=== PATIENT | female | born 1975 | race Native Hawaiian/Other Pacific Islander ===

== ENCOUNTER 2017-05-22 14:38 | Emergency (ER) | payer BC, OTHER ==
--- NOTE | 2017-05-22 15:35 | ED PDOC ---
HPI: Fever Fever Onset Was: 05/22/17 The Fever Was Measured: Axillary What Antipyretic Given Prior To Arrival: Acetaminophen Recent Sick Contacts: No Have you had recent travel within the past 21 days to any of the following countries: [place], [place], [place] or [place]?: No Does Patient Have Hx Of Febrile Seizures: No Did The Patient Have A Seizure Today: No Symptoms Associated With Fever: None Past Medical History Vital Signs: Last Vital Signs Temp 99 F 05/22/17 17:27 Pulse 103 H 05/22/17 14:44 Resp 12 05/22/17 14:44 BP 103/68 05/22/17 14:44 Pulse Ox 100 05/22/17 16:10 - Medical History Other PMH: Breast Ca with liver metastasis - Surgical History Other surgeries: B/L mastectomy with b/l breast implants. - Family History Family History: States: Other Other Family History: Mother breast Ca. Aunt Breast CA - Home Medications Home Medications: Ambulatory Orders Medication Instructions Recorded Ciprofloxacin 500 mg PO BID #6 tab 05/22/17 - Allergies Allergies/Adverse Reactions: Allergies Allergy/AdvReac Type Severity Reaction Status Date / Time No Known Allergies Allergy Verified 05/22/17 14:44 Review of Systems Constitutional: Positive for: Fever Physical Exam - Physical Exam Appears: Positive for: Well, No Acute Distress Head Exam: Positive for: ATRAUMATIC, NORMOCEPHALIC Skin: Positive for: Warm. Negative for: Rash Eye Exam: Positive for: Normal appearance ENT: Positive for: Normal ENT Inspection Neck: Positive for: Normal, Supple. Negative for: Limited ROM Cardiovascular/Chest: Positive for: Regular Rate, Rhythm. Negative for: Murmur Respiratory: Positive for: Normal Breath Sounds. Negative for: Crackles, Rales , Rhonchi, Wheezing Gastrointestinal/Abdominal: Positive for: Soft. Negative for: Tenderness, Distended, Guarding, Rebound Back: Positive for: Normal Inspection Extremity: Positive for: Normal ROM. Negative for: Tenderness, Pedal Edema, Calf Tenderness Neurologic/Psych: Positive for: Alert, Oriented - Laboratory Results Result Diagrams: 05/22/17 15:45 05/22/17 15:45 - ECG O2 Sat by Pulse Oximetry: 100 Medical Decision Making Medical Decision Making: Initial impression Fever unknown source to r/o infection/sepsis Differential Influenza, chest wall abscess s/p biopsy, UTI, PNA Plan CBC, CMP, blood Cx, UA, Urine Cx, Influenza test CXR, EKG Motrin 600 mg PO Talk[address] with Dr Lucero who reports sent patient to ED to r/o infection/sepsis. He also reports fever may be related with new inmunotherapy medication 17:30 reevaluation. Patient asymptomatic now, afebrile Temp 99. Labs CBC: no leukocytosis, CMP: Transaminitis, Influenza test neg. CXR: no infiltrates, EKG normal. UA: Hematuria related with menses. leukocyte sterase trace, leukocyturia LAbs result discussed with Hem-Onc Dr Lucero Recomendation Ciprofloxacin 500 mg BID x 3 days Tylenol 500 mg Q 6h PRN fever or Motrin 600 mg PRN fever. 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 Patient reports fever 104 started today at 1pm. She denies cough, SOB, runny nose, nasal congestion, chest pain, palpitation, nausea , vomiting, diarrhea, abd pain, dysuria, skin infection. Patient reports she had central chest biopsy 2 days ago. Patient took Tylenol before coming to the hospital. After Talking with Dr Lucero he states that sent patient to ED to r/ o infection and states that fever can also be related with the new medications started yesterday PH: [phone]
--- NOTE | 2017-05-22 15:59 | RAD ---
HISTORY: Breast Ca. Fever COMPARISON: No prior. TECHNIQUE: Chest PA and lateral FINDINGS: LUNGS: No active pulmonary disease. PLEURA: No significant pleural effusion identified. No pneumothorax apparent. CARDIOVASCULAR: Normal. OSSEOUS STRUCTURES: No significant abnormalities. VISUALIZED UPPER ABDOMEN: Normal. OTHER FINDINGS: Bilateral axillary surgical clips. IMPRESSION: No active disease.
[2017-05-22 16:17] LABS: BASO % 0.5 % (0.0-2.0); EOS % 0.2 % (0.0-4.0); HEMOGLOBIN 11.9 g/dL (12.0-16.0); LYMPH # 0.3 K/uL (1.0-4.3); LYMPH % 3.4 % (20.0-40.0); MEAN CELL VOLUME 102.2 fl (81.0-99.0); MEAN CORPUSCULAR HEMOGLOBIN 34.6 pg (27.0-31.0); MEAN CORPUSCULAR HGB CONC 33.9 g/dL (33.0-37.0); MEAN PLATELET VOLUME 7.8 fl (7.2-11.7); MONO # 0.5 K/uL (0.0-0.8); NEUT # 6.9 K/uL (1.8-7.0); NEUT % 89.9 % (50.0-75.0); PLATELET COUNT 275 K/uL (130-400); RBC 3.44 Mil/uL (3.80-5.20); RED CELL DISTRIBUTION WIDTH 14.8 % (11.5-14.5); WHITE BLOOD COUNT 7.6 K/uL (4.8-10.8)
[2017-05-22 16:24] LABS: ALB/GLOB RATIO 1.1 (1.0-2.1); ALBUMIN 4.1 g/dL (3.5-5.0); ALT/SGPT 59 U/L (9-52); AST/SGOT 51 U/L (14-36); BLOOD UREA NITROGEN 11 mg/dl (7-17); CALCIUM 9.6 mg/dL (8.4-10.2); GFR AFRICAN-AMERICAN > 60; GFR NON-AFRICAN AMERICAN > 60
[2017-05-22 16:30] LABS: SQUAMOUS EPITHIAL 1 /hpf (0-5); URINE BILIRUBIN NEGATIVE (NEGATIVE); URINE BLOOD LARGE (NEGATIVE); URINE CLARITY CLOUDY (Clear); URINE COLOR YELLOW (YELLOW); URINE GLUCOSE (UA) NEG (Normal); URINE LEUKOCYTE ESTERASE TRACE Leu/uL (Negative); URINE NITRATE NEGATIVE (NEGATIVE); URINE PROTEIN 30 mg/dL (NEGATIVE); URINE UROBILINOGEN 0.2-1.0 mg/dL (0.2-1.0)
[2017-05-22 16:38] LABS: PARTIAL THROMBOPLASTIN TIME 22.6 Seconds (25.6-37.1); PROTHROMBIN TIME 11.5 Seconds (9.8-13.1)
[2017-05-22 17:34] VITALS: PULSE 82; RESP 19
[2017-05-22 18:08] VITALS: BP 125/78; TEMP 97; O2SAT 98
[2017-05-22 18:34] LABS: TOTAL CELLS COUNTED 100
[2017-05-22 18:40] LABS: LYMPHOCYTE 3 % (20-50); MONOCYTE 7 % (0-10); NEUTROPHIL 90 % (42-75)
[2017-05-22 18:41] LABS: PLATELET ESTIMATE NORMAL (NORMAL)
--- NOTE | 2017-05-23 23:46 | CARD ---
APPROVED REPORT EKG Measurement Heart [id number] <Conclusion> Sinus rhythm with short OK Otherwise normal ECG
== END 2017-05-22 18:50 | disposition home or self-care (01) ==
LOC: H.ER 14:38
DX: R50.9 Fever, unspecified (principal); N30.91 Cystitis, unspecified with hematuria; C50.919 Malignant neoplasm of unspecified site of unspecified female breast

== ENCOUNTER 2018-06-30 14:53 | Inpatient (IN) | payer BC ==
[2018-06-30] MEDS ORDERED: Sodium Chloride 0.9% 1,000 ML IV STA (17:03)
[2018-06-30 17:15] LABS: VENOUS BLOOD GAS BASE EXCESS 3.9 mmol/L (0.0-2.0); VENOUS BLOOD GAS PCO2 42 mmHg (40-60); VENOUS BLOOD GAS PO2 32 mm/Hg (30-55); VENOUS BLOOD PH 7.44 (7.32-7.43)
[2018-06-30 17:20] LABS: BASO % 1.3 % (0.0-2.0); EOS % 0.1 % (0.0-4.0); LYMPH # 0.8 K/uL (1.0-4.3); LYMPH % 41.5 % (20.0-40.0); MEAN CELL VOLUME 100.9 fl (81.0-99.0); MEAN CORPUSCULAR HEMOGLOBIN 33.7 pg (27.0-31.0); MEAN CORPUSCULAR HGB CONC 33.4 g/dL (33.0-37.0); MEAN PLATELET VOLUME 8.8 fl (7.2-11.7); MONO # 0.3 K/uL (0.0-0.8); MONO % 14.6 % (0.0-10.0); NEUT # 0.8 K/uL (1.8-7.0); NEUT % 42.5 % (50.0-75.0); NRBC % 10.1 % (0.0-0.0); RBC 2.01 Mil/uL (3.80-5.20); RED CELL DISTRIBUTION WIDTH 20.7 % (11.5-14.5)
--- NOTE | 2018-06-30 17:20 | ED PDOC ---
HPI: General Adult Time Seen by Provider: 06/30/18 15:34 Chief Complaint (Nursing): Abdominal Pain Chief Complaint (Provider): Right flank/rib pain History Per: Patient History/Exam Limitations: no limitations Additional History Per: Patient, Family Additional Complaint(s): 43yo female with history of metastatic breast cancer with mets to liver, currently undergoing chemothreapy, comes to ER with complaints of right sided flank and right lower rib pain since this morning. She states the pain has been ongoing for several hours, but currently is less painful than at onset. Patient and concerned due to patient's medical history; also reports patient recently had a procedure done by IR access through right groin and used dye to perform mapping of liver. Patient also had a fever this morning. Otherwise, no cough, vomiting, diarrhea or urinary symptoms. Patient also reports intermittent abdominal pain x 2 weeks, which she attributes to her chemotherapy. No additional complaints. PMD: [facility] Oncologist: Skyler Fairbanks Past Medical History Reviewed: Historical Data, Nursing Documentation, Vital Signs Vital Signs: Last Vital Signs Temp 99.7 F H 06/30/18 15:22 Pulse 104 H 06/30/18 15:22 Resp 18 06/30/18 15:22 BP 99/61 L 06/30/18 15:22 Pulse Ox 100 06/30/18 15:22 - Medical History PMH: Malignancy (breast cancer with mets to liver) - Family History Family History: States: No Known Family Hx - Living Arrangements Living Arrangements: With Family - Allergies Allergies/Adverse Reactions: Allergies Allergy/AdvReac Type Severity Reaction Status Date / Time Penicillins Allergy RASH Verified 06/30/18 15:22 Review of Systems ROS Statement: Except As Marked, All Systems Reviewed And Found Negative Constitutional: Positive for: Fever Gastrointestinal: Positive for: Abdominal Pain, Other (poor appetite). Negative for: Nausea, Vomiting, Diarrhea Musculoskeletal: Positive for: Other (right flank/ribs pain) Neurological: Negative for: Weakness, Numbness Physical Exam - Reviewed Nursing Documentation Reviewed: Yes Vital Signs Reviewed: Yes - Physical Exam Appears: Positive for: Non-toxic Head Exam: Positive for: ATRAUMATIC, NORMAL INSPECTION, NORMOCEPHALIC Skin: Positive for: Warm, Dry, Pallor (mild pallor) Eye Exam: Positive for: EOMI, PERRL Neck: Positive for: Normal, Painless ROM, Supple Cardiovascular/Chest: Positive for: Regular Rate, Rhythm, Chest Non Tender, Other (port on right chest; mass on anterior chest wall which patient states is present due to her cancer). Negative for: Tachycardia Respiratory: Positive for: Normal Breath Sounds. Negative for: Wheezing, Respiratory Distress Pulses-Radial (L): 2+ Pulses-Radial (R): 2+ Gastrointestinal/Abdominal: Positive for: Soft. Negative for: Tenderness, Guarding, Rebound Back: Positive for: Normal Inspection. Negative for: L CVA Tenderness, R CVA Tenderness, Vertebral Tenderness Extremity: Positive for: Normal ROM. Negative for: Pedal Edema, Deformity Neurological/Psych: Positive for: Awake, Alert, Normal Tone, Oriented (x 3) - Laboratory Results Result Diagrams: 07/01/18 07:05 07/01/18 07:05 Lab Results: pO2 32 mm/Hg (30-55) 06/30/18 17:12 VBG pH 7.44 (7.32-7.43) H 06/30/18 17:12 VBG pCO2 42 mmHg (40-60) 06/30/18 17:12 VBG HCO3 27.1 mmol/L 06/30/18 17:12 VBG Total CO2 29.8 mmol/L (22-28) H 06/30/18 17:12 VBG O2 Sat (Calc) 68.9 % (40-65) H 06/30/18 17:12 VBG Base Excess 3.9 mmol/L (0.0-2.0) H 06/30/18 17:12 VBG Potassium 4.2 mmol/L (3.6-5.2) 06/30/18 17:12 Sodium 133.0 mmol/L (132-148) 06/30/18 17:12 Chloride 102.0 mmol/L (98-107) 06/30/18 17:12 Glucose 93 mg/dL (65-105) 06/30/18 17:12 Lactate 1.2 mmol/L (0.7-2.1) 06/30/18 17:12 FiO2 21.0 % 06/30/18 17:12 - ECG O2 Sat by Pulse Oximetry: 100 (RA) Pulse Ox Interpretation: Normal Medical Decision Making Medical Decision Making: Impression: Flank pain, rib pain Differential: Renal stones, UTI, pyelonephritis, pleural effusion, pneumonia, post operative complications like intrahepatic hematoma or retroperitoneal bleeding Patient initially not agreeable with recommendations for treatment and preferred to go to scheduled appointment tomorrow at [facility]. While in ER, patient's called IR at [facility] who recommended them to get treatment, diagnostics per my recommendations -- Labs -- UA -- Rapid flu -- CT Chest, Abdomen and Pelvis -- IV Fluids 1809 Per baseline WBC 1.5 today is 1.9 Hgb at baseline is 7.7 (after transfusion) and today is 6.7; patient does get regular blood transfusion Patient neutropenic as well as anemic. 19:29 CT FINDINGS: SOFT TISSUES: A soft tissue mass is noted predominantly anterior to the sternum; but also surrounding the sternum and posterior to the body of the sternum. Posteriorly, the soft tissue mass abuts the pericardial lining of the right cardiac base. This is compatible with chest wall metastasis. The lower portions of bilateral breast implants are noted. LUNG BASES: Pneumonic consolidation is seen in the posterior right lung base. An associated trace right pleural effusion is present. LIVER: There is marked hepatomegaly. The liver measured an estimated 25.0 cm in the midclavicular line. Multiple confluent zones of decreased attenuation are scattered diffusely throughout the liver compatible with diffuse hepatic metastasis. GALLBLADDER AND BILE DUCTS: The gallbladder appears within normal limits. No radioopaque gallstones are seen. No biliary ductal dilatation is evident. PANCREAS: Unremarkable. SPLEEN: Unremarkable. ADRENAL GLANDS: Unremarkable. KIDNEYS, URETERS, AND BLADDER: The kidneys appear within normal limits. There is no hydronephrosis or hydroureter. No urinary calculi are seen. The urinary bladder appeared normal in size and configuration. STOMACH AND BOWEL: Mucosal wall thickening is seen involving the stomach, small bowel compatible with diffuse gastroenteritis. Infectious or inflammatory etiologies are thought most likely. No evidence of bowel obstruction. APPENDIX: No evidence of acute appendicitis on CT examination. PERITONEUM: A small volume of abdominal and dependent pelvic fluid is noted. No free air. LYMPH NODES: No lymphadenopathy is evident. REPRODUCTIVE: Unremarkable as visualized. VASCULATURE: No evidence of abdominal aortic aneurysm. BONES: Sclerosis is noted involving the manubrium and body of the sternum compatible with blastic skeletal metastatic foci. No acute osseous pathology evident. IMPRESSION: 1. Posterior right lower lobe pneumonic consolidation and trace pleural effusion. 2. Marked hepatomegaly. 3. Diffuse hepatic metastasis. 4. Anterior chest wall and sternal metastatic disease as described above. 5. Evidence of diffuse gastroenteritis. 6. A small volume of abdominal and pelvic ascites is noted. 21:31 Considering pneumonia, neutropenia with fever, and severe anemia, patient will be admitted for further treatment. She was made aware of this plan. Discussed plan with her as well who agrees. Discussed plan for treatment inpatient and need for full admission including IV medications, blood transfusion, consults, and possibility of transfer. Patient understand the plan and agree with admission. Patient does not wish to be transferred at this time and prefers admission at [facility]. Patient in agreement with all above. I offered transfer if her oncologist Dr Stout at [facility] requests and accept but his recommendations to the patient were to be admitted to [facility]. There is no accepting MD and patient does not agree with transfer, as well as we do not lack appropriate services at [facility] including [facility], IR, surgery, ID, ICU thus transfer is not appropriate at this time unless requested by patient's primary oncologist. Discussed with AUDREY Elizalde who will admit and assume the care. Scribe Attestation: Documented by Staci Bowling acting as a scribe for Ron Viera MD Provider Scribe Attestation: All medical record entries made by the Scribe were at my direction and personally dictated by me. I have reviewed the chart and agree that the record accurately reflects my personal performance of the history, physical exam, m edical decision making, and the department course for this patient. I have also personally directed, reviewed, and agree with the discharge instructions and disposition. Disposition - Clinical Impression Clinical Impression: Pneumonia, Sepsis, Neutropenic fever, Severe anemia - Patient ED Disposition Is Patient to be Admitted: Yes Discussed With Dr.: Berny Elizalde Doctor Will See Patient In The: Hospital Counseled Patient/Family Regarding: Studies Performed, Diagnosis - Disposition Disposition Time: 21:30 Condition: FAIR - Pt Status Changed To: Hospital Disposition Of: Inpatient - Admit Certification Admit to Inpatient:: After my assessment, the patient will require hospitalization for at least two midnights. This is because of the severity of symptoms shown, intensity of services needed, and/or the medical risk in this patient being treated as an outpatient. - POA Present On Arrival: None
[2018-06-30 17:29] LABS: SQUAMOUS EPITHIAL 2 /hpf (0-5); URINE AMORPHOUS SEDIMENT RARE /ul (<OCC); URINE BACTERIA MOD (<OCC); URINE BILIRUBIN NEGATIVE (NEGATIVE); URINE BLOOD NEGATIVE (NEGATIVE); URINE CLARITY TURBID (Clear); URINE COLOR YELLOW (YELLOW); URINE GLUCOSE (UA) NEG (NEGATIVE); URINE LEUKOCYTE ESTERASE NEG Leu/uL (Negative); URINE PROTEIN 30 mg/dL (NEGATIVE); URINE UROBILINOGEN 0.2-1.0 mg/dL (0.2-1.0)
[2018-06-30 17:32] LABS: ALBUMIN 3.2 g/dL (3.5-5.0); ALT/SGPT 962 U/L (9-52); BLOOD UREA NITROGEN 15 mg/dl (7-17); CALCIUM 9.1 mg/dL (8.4-10.2); GFR NON-AFRICAN AMERICAN > 60
[2018-06-30 17:33] LABS: WHITE BLOOD COUNT 1.9 K/uL (4.8-10.8)
[2018-06-30 17:34] LABS: HEMOGLOBIN 6.7 g/dL (12.0-16.0)
[2018-06-30 18:03] LABS: AST/SGOT 2825 U/L (14-36)
[2018-06-30] MEDS ORDERED: Sodium Chloride 0.9% 50 ML IV ONE (18:08)
[2018-06-30] MEDS ORDERED: Iohexol 300 100 ML IJ ONE (18:08)
[2018-06-30] MEDS ORDERED: levoFLOXacin 500 mg in D5W 500 MG/100 ML BAG IVPB STA (20:44)
[2018-06-30] MEDS ORDERED: levoFLOXacin 500 mg in D5W 500 MG/100 ML BAG IVPB ONE (21:27)
[2018-06-30] MEDS: Sodium Chloride 0.9% 1,000 ML IV SCH (22:15)
[2018-07-01 07:18] LABS: BASO % 0.9 % (0.0-2.0); EOS % 0.5 % (0.0-4.0); HEMOGLOBIN 8.3 g/dL (12.0-16.0); LYMPH # 0.7 K/uL (1.0-4.3); LYMPH % 33.5 % (20.0-40.0); MEAN CELL VOLUME 97.8 fl (81.0-99.0); MEAN CORPUSCULAR HEMOGLOBIN 32.7 pg (27.0-31.0); MEAN CORPUSCULAR HGB CONC 33.5 g/dL (33.0-37.0); MEAN PLATELET VOLUME 8.3 fl (7.2-11.7); MONO # 0.4 K/uL (0.0-0.8); MONO % 16.7 % (0.0-10.0); NEUT # 1.1 K/uL (1.8-7.0); NEUT % 48.4 % (50.0-75.0); NRBC % 8.1 % (0.0-0.0); RBC 2.54 Mil/uL (3.80-5.20); RED CELL DISTRIBUTION WIDTH 21.2 % (11.5-14.5); WHITE BLOOD COUNT 2.2 K/uL (4.8-10.8)
[2018-07-01 07:46] LABS: ALB/GLOB RATIO 0.9 (1.0-2.1); ALBUMIN 2.8 g/dL (3.5-5.0); ALT/SGPT 780 U/L (9-52); BLOOD UREA NITROGEN 10 mg/dl (7-17); CALCIUM 8.2 mg/dL (8.4-10.2); GFR NON-AFRICAN AMERICAN > 60
--- NOTE | 2018-07-01 09:13 | CP.PCM.HP ---
History of Present Illness - History of Present Illness History of Present Illness: pt admitted for pna. has h/o breast cancer w/ liver mets. anna had liver mapping procedure for radio therapy. per pt has hematoma to the liver but was lucius it was stable. lft elevation noted. at present no f/c, n/v/d. no sob/wheezing/rhonchi pts heme/onc care at [facility]. per has triple negative breast ca. abd/pelvis ct results pending. Present on Admission - Present on Admission Any Indicators Present on Admission: No Review of Systems - Respiratory Respiratory: As Per HPI, Chest Congestion - Gastrointestinal Gastrointestinal: As Per HPI, Abdominal Pain Past Patient History - Past Medical History & Family History Past Medical History?: Yes - Past Social History Smoking Status: Never Smoked - HEMATOLOGICAL/ONCOLOGICAL Hx Cancer: Yes (breast) - MUSCULOSKELETAL/RHEUMATOLOGICAL Hx Falls: No - PSYCHIATRIC Hx Substance Use: No - SURGICAL HISTORY Hx Mastectomy: Yes (B/L breast 2013) - ANESTHESIA Hx Anesthesia: Yes Hx Anesthesia Reactions: No Meds Allergies/Adverse Reactions: Allergies Allergy/AdvReac Type Severity Reaction Status Date / Time Penicillins Allergy RASH Verified 06/30/18 15:22 Physical Exam - Constitutional Appears: Well, Non-toxic, No Acute Distress - Head Exam Head Exam: ATRAUMATIC, NORMAL INSPECTION, NORMOCEPHALIC - Eye Exam Eye Exam: EOMI, Normal appearance, PERRL Pupil Exam: NORMAL ACCOMODATION, PERRL - ENT Exam ENT Exam: Mucous Membranes Moist, Normal Exam - Neck Exam Neck exam: Positive for: Normal Inspection - Respiratory Exam Respiratory Exam: Clear to Auscultation Bilateral, NORMAL BREATHING PATTERN - Cardiovascular Exam Cardiovascular Exam: REGULAR RHYTHM, RRR, +S1, +S2 - GI/Abdominal Exam GI & Abdominal Exam: Normal Bowel Sounds, Soft. absent: Tenderness - Extremities Exam Extremities exam: Positive for: full ROM, normal capillary refill, normal inspection, pedal pulses present - Back Exam Back exam: NORMAL INSPECTION - Neurological Exam Neurological exam: Alert, CN II-XII Intact, Normal Gait, Oriented x3, Reflexes Normal - Psychiatric Exam Psychiatric exam: Normal Affect, Normal Mood - Skin Skin Exam: Dry, Intact, Normal Color, Warm Results - Vital Signs Recent Vital Signs: Last Vital Signs Temp 98.5 F 07/01/18 08:09 Pulse 88 07/01/18 08:09 Resp 18 07/01/18 08:09 BP 112/72 07/01/18 08:09 Pulse Ox 95 07/01/18 08:09 - Labs Result Diagrams: 07/01/18 07:05 07/01/18 07:05 Labs: Laboratory Results - last 24 hr 06/30/18 06/30/18 06/30/18 17:12 17:16 17:16 WBC 1.9 L* D RBC 2.01 L Hgb 6.7 L D Hct 20.2 L MCV 100.9 H MCH 33.7 H MCHC 33.4 RDW 20.7 H Plt Count 201 MPV 8.8 Neut % (Auto) 42.5 L Lymph % (Auto) 41.5 H Grimes % (Auto) 14.6 H Eos % (Auto) 0.1 Baso % (Auto) 1.3 Neut # (Auto) 0.8 L Lymph # (Auto) 0.8 L Grimes # (Auto) 0.3 Eos # (Auto) 0.0 Baso # (Auto) 0.0 Retic Count pO2 32 VBG pH 7.44 H VBG pCO2 42 VBG HCO3 27.1 VBG Total CO2 29.8 H VBG O2 Sat (Calc) 68.9 H VBG Base Excess 3.9 H VBG Potassium 4.2 Sodium 133.0 133 Chloride 102.0 98 Glucose 93 Lactate 1.2 FiO2 21.0 Potassium 4.2 Carbon Dioxide 26 Anion Gap 13 BUN 15 Creatinine 0.6 L Est GFR ( Amer) > 60 Est GFR (Non-Af Amer) > 60 Random Glucose 91 Calcium 9.1 Total Bilirubin 0.5 AST 2825 H ALT 962 H D Alkaline Phosphatase 206 H D Total Protein 6.4 Albumin 3.2 L D Globulin 3.2 Albumin/Globulin Ratio 1.0 Vitamin B12 Venous Blood Potassium 4.2 Urine Color Urine Clarity Urine pH Ur Specific [place] Urine Protein Urine Glucose (UA) Urine Ketones Urine Blood Urine Nitrate Urine Bilirubin Urine Urobilinogen Ur Leukocyte Esterase Urine RBC (Auto) Urine Microscopic WBC Ur Squamous Epith Cells Amorphous Sediment Urine Bacteria Influenza Typ A,B (EIA) Blood Type Antibody Screen Crossmatch BBK History Checked 06/30/18 06/30/18 06/30/18 17:16 17:16 21:20 WBC RBC Hgb Hct MCV MCH MCHC RDW Plt Count MPV Neut % (Auto) Lymph % (Auto) Grimes % (Auto) Eos % (Auto) Baso % (Auto) Neut # (Auto) Lymph # (Auto) Grimes # (Auto) Eos # (Auto) Baso # (Auto) Retic Count pO2 VBG pH VBG pCO2 VBG HCO3 VBG Total CO2 VBG O2 Sat (Calc) VBG Base Excess VBG Potassium Sodium Chloride Glucose Lactate FiO2 Potassium Carbon Dioxide Anion Gap BUN Creatinine Est GFR ( Amer) Est GFR (Non-Af Amer) Random Glucose Calcium Total Bilirubin AST ALT Alkaline Phosphatase Total Protein Albumin Globulin Albumin/Globulin Ratio Vitamin B12 Venous Blood Potassium Urine Color Yellow Urine Clarity Turbid Urine pH 5.0 Ur Specific [place] 1.028 Urine Protein 30 Urine Glucose (UA) Neg Urine Ketones Trace Urine Blood Negative Urine Nitrate Negative Urine Bilirubin Negative Urine Urobilinogen 0.2-1.0 Ur Leukocyte Esterase Neg Urine RBC (Auto) 2 Urine Microscopic WBC 5 Ur Squamous Epith Cells 2 Amorphous Sediment Rare H Urine Bacteria Mod H Influenza Typ A,B (EIA) Negative for flu a/b Blood Type A POSITIVE Antibody Screen Negative Crossmatch See Detail BBK History Checked Patient has bt 07/01/18 07/01/18 07/01/18 07:05 07:05 07:05 WBC 2.2 L RBC 2.54 L Hgb 8.3 L Hct 24.8 L MCV 97.8 D MCH 32.7 H MCHC 33.5 RDW 21.2 H Plt Count 179 MPV 8.3 Neut % (Auto) 48.4 L Lymph % (Auto) 33.5 Grimes % (Auto) 16.7 H Eos % (Auto) 0.5 Baso % (Auto) 0.9 Neut # (Auto) 1.1 L Lymph # (Auto) 0.7 L Grimes # (Auto) 0.4 Eos # (Auto) 0.0 Baso # (Auto) 0.0 Retic Count 3.3 H pO2 VBG pH VBG pCO2 VBG HCO3 VBG Total CO2 VBG O2 Sat (Calc) VBG Base Excess VBG Potassium Sodium 134 Chloride 104 Glucose Lactate FiO2 Potassium 3.7 Carbon Dioxide 24 Anion Gap 10 BUN 10 Creatinine 0.5 L Est GFR ( Amer) > 60 Est GFR (Non-Af Amer) > 60 Random Glucose 94 Calcium 8.2 L Total Bilirubin 0.7 AST 1846 H ALT 780 H Alkaline Phosphatase 199 H Total Protein 5.9 L Albumin 2.8 L Globulin 3.1 Albumin/Globulin Ratio 0.9 L Vitamin B12 > 1000 H Venous Blood Potassium Urine Color Urine Clarity Urine pH Ur Specific [place] Urine Protein Urine Glucose (UA) Urine Ketones Urine Blood Urine Nitrate Urine Bilirubin Urine Urobilinogen Ur Leukocyte Esterase Urine RBC (Auto) Urine Microscopic WBC Ur Squamous Epith Cells Amorphous Sediment Urine Bacteria Influenza Typ A,B (EIA) Blood Type Antibody Screen Crossmatch BBK History Checked Assessment & Plan (1) Breast cancer Assessment and Plan: [facility] Status: Acute (2) Neutropenia Assessment and Plan: r/t chemo care at [facility] Status: Acute (3) Chronic anemia Assessment and Plan: s/p 1 unit prbc r/t chemo care at [facility] Status: Acute (4) DVT prophylaxis Assessment and Plan: scd nad ae hose ambulation hold anticoag r/t anemia Status: Acute (5) Pneumonia Assessment and Plan: levaquin tylenol prn fluids id as pt is nutrapenic and on chemo Status: Acute Decision To Admit - Pt Status Changed To: Hospital Disposition Of: Inpatient - Admit Certification Admit to Inpatient:: After my assessment, the patient will require hos pitalization for at least two midnights. This is because of the severity of symptoms shown, intensity of services needed, and/or the medical risk in this patient being treated as an outpatient. - . Bed Request Type: Telemetry Admitting Physician: Sonia Acuna
[2018-07-01] MEDS: levoFLOXacin 500 mg in D5W 500 MG/100 ML BAG IVPB SCH (09:32)
[2018-07-01] MEDS: Sodium Chloride 0.9% 1,000 ML IV SCH ×2 (09:32→17:08)
[2018-07-01 09:59] LABS: AST/SGOT 1846 U/L (14-36)
--- NOTE | 2018-07-01 11:34 | CP.PCM.CON ---
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 The patient was initialy diagnosed with her breast cancer in 2013 and treated with mastectomy and adjuvant chemotherapy. She unfortunately was found to have recurrent disease involving the chest wall and liver. She was treated on clinical trials and is currently undergoing systemic therapy with Abraxane and to have liver directed therapy. She recently had liver mapping in anticipation for Y90 treatment. She is s/p 1U PRBC and currently on antibiotics. She notes to improvement in her fatigue and pain. Past medical history: stage IV breast cancer (triple negative) Past surgical history: Portacath, bilateral mastectomy Family history: Denies hematologic and oncologic problems Social history: Denies tobacco, alcohol, and illicit drug use. Allergies: Penicillins Review of systems: All remaining review of systems including HEENT, cardiovascular, respiratory, gastrointestinal, genitourinary, musculoskeletal, dermatologic, neurologic, and psychiatric are negative unless mentioned in the HPI. Past Patient History - Past Medical History & Family History Past Medical History?: Yes - Past Social History Smoking Status: Never Smoked - HEMATOLOGICAL/ONCOLOGICAL Hx Cancer: Yes (breast) - MUSCULOSKELETAL/RHEUMATOLOGICAL Hx Falls: No - PSYCHIATRIC Hx Substance Use: No - SURGICAL HISTORY Hx Mastectomy: Yes (B/L breast 2013) - ANESTHESIA Hx Anesthesia: Yes Hx Anesthesia Reactions: No Meds Allergies/Adverse Reactions: Allergies Allergy/AdvReac Type Severity Reaction Status Date / Time Penicillins Allergy RASH Verified 06/30/18 15:22 - Medications Medications: Current Medications Acetaminophen (Tylenol 325mg Tab) 650 mg PO Q4 PRN PRN Reason: Fever >100.4 F Levofloxacin/Dextrose (Levaquin 500mg) 500 mg in 100 mls @ 100 mls/hr IVPB DAILY BERENICE; Protocol Last Admin: 07/01/18 09:32 Dose: 100 mls/hr Sodium Chloride (Sodium Chloride 0.9%) 1,000 mls @ 125 mls/hr IV .Q8H BERENICE Stop: 07/01/18 21:28 Last Admin: 07/01/18 09:32 Dose: 125 mls/hr Physical Exam - Head Exam Head Exam: ATRAUMATIC - Eye Exam Eye Exam: Normal appearance - ENT Exam ENT Exam: Mucous Membranes Dry - Respiratory Exam Respiratory Exam: Decreased Breath Sounds - Cardiovascular Exam Cardiovascular Exam: +S1, +S2 - GI/Abdominal Exam GI & Abdominal Exam: Normal Bowel Sounds - Neurological Exam Neurological exam: Oriented x3 - Psychiatric Exam Psychiatric exam: Normal Affect, Normal Mood - Skin Skin Exam: Warm Results - Vital Signs Recent Vital Signs: Last Vital Signs Temp 98.5 F 07/01/18 08:09 Pulse 88 07/01/18 08:09 Resp 18 07/01/18 08:09 BP 112/72 07/01/18 08:09 Pulse Ox 100 07/01/18 10:36 - Labs Result Diagrams: 07/01/18 07:05 07/01/18 07:05 Labs: Laboratory Results - last 24 hr 06/30/18 06/30/18 06/30/18 17:12 17:16 17:16 WBC 1.9 L* D RBC 2.01 L Hgb 6.7 L D Hct 20.2 L MCV 100.9 H MCH 33.7 H MCHC 33.4 RDW 20.7 H Plt Count 201 MPV 8.8 Neut % (Auto) 42.5 L Lymph % (Auto) 41.5 H [place] % (Auto) 14.6 H Eos % (Auto) 0.1 Baso % (Auto) 1.3 Neut # (Auto) 0.8 L Lymph # (Auto) 0.8 L [place] # (Auto) 0.3 Eos # (Auto) 0.0 Baso # (Auto) 0.0 Retic Count pO2 32 VBG pH 7.44 H VBG pCO2 42 VBG HCO3 27.1 VBG Total CO2 29.8 H VBG O2 Sat (Calc) 68.9 H VBG Base Excess 3.9 H VBG Potassium 4.2 Sodium 133.0 133 Chloride 102.0 98 Glucose 93 Lactate 1.2 FiO2 21.0 Potassium 4.2 Carbon Dioxide 26 Anion Gap 13 BUN 15 Creatinine 0.6 L Est GFR ( Amer) > 60 Est GFR (Non-Af Amer) > 60 Random Glucose 91 Calcium 9.1 Ferritin Total Bilirubin 0.5 AST 2825 H ALT 962 H D Alkaline Phosphatase 206 H D Total Protein 6.4 Albumin 3.2 L D Globulin 3.2 Albumin/Globulin Ratio 1.0 Vitamin B12 Venous Blood Potassium 4.2 Urine Color Urine Clarity Urine pH Ur Specific [place] Urine Protein Urine Glucose (UA) Urine Ketones Urine Blood Urine Nitrate Urine Bilirubin Urine Urobilinogen Ur Leukocyte Esterase Urine RBC (Auto) Urine Microscopic WBC Ur Squamous Epith Cells Amorphous Sediment Urine Bacteria Influenza Typ A,B (EIA) Blood Type Antibody Screen Crossmatch BBK History Checked 06/30/18 06/30/18 06/30/18 17:16 17:16 21:20 WBC RBC Hgb Hct MCV MCH MCHC RDW Plt Count MPV Neut % (Auto) Lymph % (Auto) [place] % (Auto) Eos % (Auto) Baso % (Auto) Neut # (Auto) Lymph # (Auto) [place] # (Auto) Eos # (Auto) Baso # (Auto) Retic Count pO2 VBG pH VBG pCO2 VBG HCO3 VBG Total CO2 VBG O2 Sat (Calc) VBG Base Excess VBG Potassium Sodium Chloride Glucose Lactate FiO2 Potassium Carbon Dioxide Anion Gap BUN Creatinine Est GFR ( Amer) Est GFR (Non-Af Amer) Random Glucose Calcium Ferritin Total Bilirubin AST ALT Alkaline Phosphatase Total Protein Albumin Globulin Albumin/Globulin Ratio Vitamin B12 Venous Blood Potassium Urine Color Yellow Urine Clarity Turbid Urine pH 5.0 Ur Specific [place] 1.028 Urine Protein 30 Urine Glucose (UA) Neg Urine Ketones Trace Urine Blood Negative Urine Nitrate Negative Urine Bilirubin Negative Urine Urobilinogen 0.2-1.0 Ur Leukocyte Esterase Neg Urine RBC (Auto) 2 Urine Microscopic WBC 5 Ur Squamous Epith Cells 2 Amorphous Sediment Rare H Urine Bacteria Mod H Influenza Typ A,B (EIA) Negative for flu a/b Blood Type A POSITIVE Antibody Screen Negative Crossmatch See Detail BBK History Checked Patient has bt 07/01/18 07/01/18 07/01/18 07:05 07:05 07:05 WBC 2.2 L RBC 2.54 L Hgb 8.3 L Hct 24.8 L MCV 97.8 D MCH 32.7 H MCHC 33.5 RDW 21.2 H Plt Count 179 MPV 8.3 Neut % (Auto) 48.4 L Lymph % (Auto) 33.5 [place] % (Auto) 16.7 H Eos % (Auto) 0.5 Baso % (Auto) 0.9 Neut # (Auto) 1.1 L Lymph # (Auto) 0.7 L [place] # (Auto) 0.4 Eos # (Auto) 0.0 Baso # (Auto) 0.0 Retic Count 3.3 H pO2 VBG pH VBG pCO2 VBG HCO3 VBG Total CO2 VBG O2 Sat (Calc) VBG Base Excess VBG Potassium Sodium 134 Chloride 104 Glucose Lactate FiO2 Potassium 3.7 Carbon Dioxide 24 Anion Gap 10 BUN 10 Creatinine 0.5 L Est GFR ( Amer) > 60 Est GFR (Non-Af Amer) > 60 Random Glucose 94 Calcium 8.2 L Ferritin > 5000.0 H Total Bilirubin 0.7 AST 1846 H ALT 780 H Alkaline Phosphatase 199 H Total Protein 5.9 L Albumin 2.8 L Globulin 3.1 Albumin/Globulin Ratio 0.9 L Vitamin B12 > 1000 H Venous Blood Potassium Urine Color Urine Clarity Urine pH Ur Specific [place] Urine Protein Urine Glucose (UA) Urine Ketones Urine Blood Urine Nitrate Urine Bilirubin Urine Urobilinogen Ur Leukocyte Esterase Urine RBC (Auto) Urine Microscopic WBC Ur Squamous Epith Cells Amorphous Sediment Urine Bacteria Influenza Typ A,B (EIA) Blood Type Antibody Screen Crossmatch BBK History Checked Assessment & Plan (1) Anemia Assessment and Plan: likely chronic disease from malignancy and recent chemotherapy. s/p 1U PRBC, will plan for an additional unit today no evidence of bleeding Status: Acute (2) Neutropenia Assessment and Plan: mild secondary to chemotherapy will monitor CBC Status: Acute (3) Breast cancer Assessment and Plan: stage IV bone and liver metastasis extensive tumor burden in the liver - for liver directed therapy at [facility] systemic chemotherapy and f/u with primary oncologic team Thank you for this interesting consult. Status: Acute
[2018-07-01 13:18] LABS: FOLATE 12.5 ng/mL
--- NOTE | 2018-07-01 14:31 | CT ---
Date of service: 06/30/2018 PROCEDURE: CT Abdomen and Pelvis with contrast HISTORY: right rib righ flank pain COMPARISON: None. TECHNIQUE: Contrast dose: 90 mL Omnipaque 300 Radiation dose: Total exam DLP = 383.81 mGy-cm. This CT exam was performed using one or more of the following dose reduction techniques: Automated exposure control, adjustment of the mA and/or kV according to patient size, and/or use of iterative reconstruction technique. FINDINGS: LOWER THORAX: A heterogeneous irregularly marginated anterior chest wall mass measuring 7.5 x 7.3 cm on coronal series 601, image 20 with anterior skin changes and posterior extensively altered bone mineralization throughout the sternum noted. These osseous findings are compatible with diffuse metastatic involvement and/or radiation changes here. This heterogeneous mass in its pre sternal location is associated with associated with the contour changes in the right saline implant. Mass is anterior and also extends posterior to the sternum Mass is at least 7.3 cm wide on axis series 2, image 2. Regional disease progression and or recurrence is compatible with this. Trans thoracic/trans chest wall disease is suggested. Right lung base subsegmental atelectasis with right pleural effusion suggested. LIVER: There are innumerable left and right hypodensities too numerous to count throughout the left and right hepatic lobes. There is fluid ascites around the liver and around the right bowel loops extending into the pelvis. There is fluid around the gallbladder. The liver is enlarged cephalo caudal extent is at least 25.3 cm on sagittal series 602, image 59 GALLBLADDER AND BILE DUCTS: No gallstones. Pericholecystic fluid present. PANCREAS: Unremarkable. No gross lesion or ductal dilatation. SPLEEN: Unremarkable. ADRENALS: Unremarkable. No mass. KIDNEYS AND URETERS: Unremarkable. No hydronephrosis. No solid mass. VASCULATURE: Unremarkable. No aortic aneurysm. No aortic atherosclerotic calcification or mural plaque present. BOWEL: Unremarkable. No obstruction. No gross mural thickening. APPENDIX: Not identified. No gross pericecal inflammatory changes noted. However note is made that there is a large amount of fluid ascites present in this patient with fluid around the liver right bowel loops and throughout the pelvis. PERITONEUM: Free fluid in the pelvis. No gross free air. LYMPH NODES: Unremarkable. No enlarged lymph nodes. BLADDER: Moderately distended. Otherwise unremarkable REPRODUCTIVE: Unremarkable. BONES: No acute fracture. At the right lung base markedly altered bone mineralization of the sternum as above-perhaps extensive radiation changes. Direct regional osseous concomitant involvement not excluded. No pathological fracture seen here. No other bony similar altered bone mineralization findings suggested. No other lytic or blastic lesions noted. OTHER FINDINGS: None. IMPRESSION: Heterogeneous mass mostly presternal some wrapping around extending posterior to the sternum-transthoracic trans chest wall regional disease recurrence/progression in this patient with presumed known breast cancer. The altered sternal bone mineralization is compatible with radiation changes and/or direct contiguous neoplastic involvement. Innumerable and extensive liver metastases. Hepatomegaly. Right pleural effusion right passive compressive subsegmental atelectasis. Extensive ascites. No renal calculi seen. No hydronephrosis. No gross urolithiasis appreciated. No hydroureter. Comments: Study marked for PA review .
[2018-07-01] MEDS ORDERED: Sodium Chloride 3% for Inhalation 4 ML VIAL.NEB IH PRN (15:02)
--- NOTE | 2018-07-01 15:13 | CP.PCM.CON ---
History of Present Illness - History of Present Illness History of Present Illness: 43yo female with history of breast cancer with liver mets , currently undergoing chemothrapy, comes to ER with complaints of right sided flank and right lower rib pain associated with fever and abdominal pain On Friday underwent tumor mapping at [place] for eventual Radiation treatment of liver mets This procedure was done through her right groin via Inferior Vena Cava On admission she was found to be neutropenic and anemic with very high LFT's A CT abdomen was done which showed atelectasis right bas/ effusion , as well as extensive liver mets and massive ascites There was no mention of any portal vein thrombosis Patient is febrile to 102 but denies chest pain cough or SOB She is satting well on RA Cultures were sent of blood - however patient denies cough or sputum production Patient has a port in her right chest for chemo which has been in place several months Review of Systems - Review of Systems All systems: reviewed and no additional remarkable complaints except - Constitutional Constitutional: As Per HPI, Anorexia, Fever - EENT Eyes: absent: As Per HPI, Blind Spots, Blurred Vision, Change in Vision, Decreased Night Vision, Diplopia, Discharge, Dry Eye, Exophthalmos, Floaters, Irritation, Itchy Eyes, Loss of Peripheral Vision, Pain, Photophobia, Requires Corrective Lenses, Sees Flashes, Spots in Vision, Tunnel Vision, Other Visual Disturbances, Loss of Vision, Other Ears: absent: As Per HPI, Decreased Hearing, Ear Discharge, Ear Pain, Tinnitus, Abnormal Hearing, Disequilibrium, Dizziness, Other Nose/Mouth/Throat: absent: As Per HPI, Epistaxis, Nasal Congestion, Nasal Discharge, Nasal Obstruction, Nasal Trauma, Nose Pain, Post Nasal Drip, Sinus Pain, Sinus Pressure, Bleeding Gums, Change in Voice, Dental Pain, Dry Mouth, Dysphagia, Halitosis, Hoarsness, Lip Swelling, Mouth Lesions, Mouth Pain, Odynophagia, Sore Throat, Throat Swelling, Tongue Swelling, Facial Pain, Neck Pain, Neck Mass, Other - Breasts Breasts: As Per HPI - Cardiovascular Cardiovascular: absent: As Per HPI, Acrocyanosis, Chest Pain, Chest Pain at Rest, Chest Pain with Activity, Claudication, Diaphoresis, Dyspnea, Dyspnea on Exertion, Edema, Irregular Heart Rhythm, Pain Radiating to Arm/Neck/Jaw, Leg Edema, Leg Ulcers, Lightheadedness, Orthopnea, Palpitations, Paroxysmal Nocturnal Dyspnea, Pedal Edema, Radiating Pain, Rapid Heart Rate, Slow Heart Rate, Syncope, Other - Respiratory Respiratory: As Per HPI - Gastrointestinal Gastrointestinal: absent: As Per HPI, Abdominal Pain, Belching, Bloating, Change in Bowel Habits, Change in Stool Character, Coffee Ground Emesis, Constipation, Cramping, Diarrhea, Dyspepsia, Dysphagia, Early Satiety, Excessive Flatus, Fecal Incontinence, Heartburn, Hematemesis, Hematochezia, Loose Stools, Melena, Nausea, Odynophagia, Temesmus, Vomiting, Other - Reproductive: Female Reproductive:Female: absent: As Per HPI, Amenorrhea, Amenorrhea/ Control, Currently Menstual, Cycle <21 Days, Cycle >35 Days, Cycle Variable, Menses 1-7 Days, Menses >/= 8 Days, Menses Variable, Cycle > 4 Weeks Between, No Menses for 6 Months, Heavy Menses, Light Menses, Normal Menses, Spotting Between Cycles, S/P Hysterectomy, Menopausal, Post Menopausal, Premenarche, Abnormal Vaginal Bleeding, Dysmenorrhea, Dyspareunia, Genital Lesions, Genital Pruritis, Pelvic Pain, Prolapse Symptoms, Sexual Dysfunction, Vaginal Discharge, Vaginal Dryness, Vaginal Odor, Vaginal Pruritis, Other Past Patient History - Past Medical History & Family History Past Medical History?: Yes - Past Social History Smoking Status: Never Smoked - HEMATOLOGICAL/ONCOLOGICAL Hx Cancer: Yes (breast) - MUSCULOSKELETAL/RHEUMATOLOGICAL Hx Falls: No - PSYCHIATRIC Hx Substance Use: No - SURGICAL HISTORY Hx Mastectomy: Yes (B/L breast 2013) - ANESTHESIA Hx Anesthesia: Yes Hx Anesthesia Reactions: No Meds Allergies/Adverse Reactions: Allergies Allergy/AdvReac Type Severity Reaction Status Date / Time Penicillins Allergy RASH Verified 06/30/18 15:22 - Medications Medications: Current Medications Acetaminophen (Tylenol 325mg Tab) 650 mg PO Q4 PRN PRN Reason: Fever >100.4 F Levofloxacin/Dextrose (Levaquin 500mg) 500 mg in 100 mls @ 100 mls/hr IVPB DAILY BERENICE; Protocol Last Admin: 07/01/18 09:32 Dose: 100 mls/hr Sodium Chloride (Sodium Chloride 0.9%) 1,000 mls @ 125 mls/hr IV .Q8H BERENICE Stop: 07/01/18 21:28 Last Admin: 07/01/18 09:32 Dose: 125 mls/hr Ibuprofen (Motrin Tab) 600 mg PO Q6 PRN PRN Reason: Fever >100.4 F Last Admin: 07/01/18 12:54 Dose: 600 mg Physical Exam - Constitutional Appears: No Acute Distress, Chronically Ill - Head Exam Head Exam: absent: NORMOCEPHALIC - Eye Exam Eye Exam: EOMI, PERRL. absent: Scleral icterus Pupil Exam: NORMAL ACCOMODATION - ENT Exam ENT Exam: Mucous Membranes Dry, Normal External Ear Exam - Neck Exam Neck exam: Negative for: Lymphadenopathy - Respiratory Exam Respiratory Exam: Decreased Breath Sounds, Clear to Auscultation Bilateral - Cardiovascular Exam Cardiovascular Exam: REGULAR RHYTHM, +S1, +S2 - GI/Abdominal Exam GI & Abdominal Exam: Diminished Bowel Sounds, Soft. absent: Tenderness - Exam Exam: NORMAL INSPECTION - Extremities Exam Extremities exam: Positive for: pedal pulses present. Negative for: calf tenderness, pedal edema, tenderness - Back Exam Back exam: absent: CVA tenderness (L), CVA tenderness (R), paraspinal tenderness - Neurological Exam Neurological exam: Alert, CN II-XII Intact, Oriented x3, Reflexes Normal - Psychiatric Exam Psychiatric exam: Depressed - Skin Skin Exam: Dry Results - Vital Signs Recent Vital Signs: Last Vital Signs Temp 98.5 F 07/01/18 14:25 Pulse 89 07/01/18 14:25 Resp 18 07/01/18 14:25 BP 112/76 07/01/18 14:25 Pulse Ox 96 07/01/18 12:35 - Labs Result Diagrams: 07/01/18 07:05 07/01/18 07:05 Labs: Laboratory Results - last 24 hr 06/30/18 06/30/18 06/30/18 17:12 17:16 17:16 WBC 1.9 L* D RBC 2.01 L Hgb 6.7 L D Hct 20.2 L MCV 100.9 H MCH 33.7 H MCHC 33.4 RDW 20.7 H Plt Count 201 MPV 8.8 Neut % (Auto) 42.5 L Lymph % (Auto) 41.5 H [place] % (Auto) 14.6 H Eos % (Auto) 0.1 Baso % (Auto) 1.3 Neut # (Auto) 0.8 L Lymph # (Auto) 0.8 L [place] # (Auto) 0.3 Eos # (Auto) 0.0 Baso # (Auto) 0.0 Retic Count pO2 32 VBG pH 7.44 H VBG pCO2 42 VBG HCO3 27.1 VBG Total CO2 29.8 H VBG O2 Sat (Calc) 68.9 H VBG Base Excess 3.9 H VBG Potassium 4.2 Sodium 133.0 133 Chloride 102.0 98 Glucose 93 Lactate 1.2 FiO2 21.0 Potassium 4.2 Carbon Dioxide 26 Anion Gap 13 BUN 15 Creatinine 0.6 L Est GFR ( Amer) > 60 Est GFR (Non-Af Amer) > 60 Random Glucose 91 Calcium 9.1 Ferritin Total Bilirubin 0.5 AST 2825 H ALT 962 H D Alkaline Phosphatase 206 H D Total Protein 6.4 Albumin 3.2 L D Globulin 3.2 Albumin/Globulin Ratio 1.0 Vitamin B12 Folate Venous Blood Potassium 4.2 Urine Color Urine Clarity Urine pH Ur Specific [place] Urine Protein Urine Glucose (UA) Urine Ketones Urine Blood Urine Nitrate Urine Bilirubin Urine Urobilinogen Ur Leukocyte Esterase Urine RBC (Auto) Urine Microscopic WBC Ur Squamous Epith Cells Amorphous Sediment Urine Bacteria Influenza Typ A,B (EIA) Blood Type Antibody Screen Crossmatch BBK History Checked 06/30/18 06/30/18 06/30/18 17:16 17:16 21:20 WBC RBC Hgb Hct MCV MCH MCHC RDW Plt Count MPV Neut % (Auto) Lymph % (Auto) [place] % (Auto) Eos % (Auto) Baso % (Auto) Neut # (Auto) Lymph # (Auto) [place] # (Auto) Eos # (Auto) Baso # (Auto) Retic Count pO2 VBG pH VBG pCO2 VBG HCO3 VBG Total CO2 VBG O2 Sat (Calc) VBG Base Excess VBG Potassium Sodium Chloride Glucose Lactate FiO2 Potassium Carbon Dioxide Anion Gap BUN Creatinine Est GFR ( Amer) Est GFR (Non-Af Amer) Random Glucose Calcium Ferritin Total Bilirubin AST ALT Alkaline Phosphatase Total Protein Albumin Globulin Albumin/Globulin Ratio Vitamin B12 Folate Venous Blood Potassium Urine Color Yellow Urine Clarity Turbid Urine pH 5.0 Ur Specific [place] 1.028 Urine Protein 30 Urine Glucose (UA) Neg Urine Ketones Trace Urine Blood Negative Urine Nitrate Negative Urine Bilirubin Negative Urine Urobilinogen 0.2-1.0 Ur Leukocyte Esterase Neg Urine RBC (Auto) 2 Urine Microscopic WBC 5 Ur Squamous Epith Cells 2 Amorphous Sediment Rare H Urine Bacteria Mod H Influenza Typ A,B (EIA) Negative for flu a/b Blood Type A POSITIVE Antibody Screen Negative Crossmatch See Detail BBK History Checked Patient has bt 07/01/18 07/01/18 07/01/18 07:05 07:05 07:05 WBC 2.2 L RBC 2.54 L Hgb 8.3 L Hct 24.8 L MCV 97.8 D MCH 32.7 H MCHC 33.5 RDW 21.2 H Plt Count 179 MPV 8.3 Neut % (Auto) 48.4 L Lymph % (Auto) 33.5 [place] % (Auto) 16.7 H Eos % (Auto) 0.5 Baso % (Auto) 0.9 Neut # (Auto) 1.1 L Lymph # (Auto) 0.7 L [place] # (Auto) 0.4 Eos # (Auto) 0.0 Baso # (Auto) 0.0 Retic Count 3.3 H pO2 VBG pH VBG pCO2 VBG HCO3 VBG Total CO2 VBG O2 Sat (Calc) VBG Base Excess VBG Potassium Sodium 134 Chloride 104 Glucose Lactate FiO2 Potassium 3.7 Carbon Dioxide 24 Anion Gap 10 BUN 10 Creatinine 0.5 L Est GFR ( Amer) > 60 Est GFR (Non-Af Amer) > 60 Random Glucose 94 Calcium 8.2 L Ferritin 6600.0 H Total Bilirubin 0.7 AST 1846 H ALT 780 H Alkaline Phosphatase 199 H Total Protein 5.9 L Albumin 2.8 L Globulin 3.1 Albumin/Globulin Ratio 0.9 L Vitamin B12 > 1000 H Folate 12.5 Venous Blood Potassium Urine Color Urine Clarity Urine pH Ur Specific [place] Urine Protein Urine Glucose (UA) Urine Ketones Urine Blood Urine Nitrate Urine Bilirubin Urine Urobilinogen Ur Leukocyte Esterase Urine RBC (Auto) Urine Microscopic WBC Ur Squamous Epith Cells Amorphous Sediment Urine Bacteria Influenza Typ A,B (EIA) Blood Type Antibody Screen Crossmatch BBK History Checked Assessment & Plan (1) Breast cancer Status: Acute (2) Chronic anemia Status: Acute (3) Neutropenia Status: Acute (4) Neutropenic fever Status: Acute (5) Pneumonia Status: Acute (6) Sepsis Status: Acute (7) Severe anemia Status: Acute - Assessment and Plan (Free Text) Assessment: 43yo female with history of breast cancer ( triple negative) with liver mets , currently undergoing chemothrapy, comes to ER with complaints of right sided flank and right lower rib pain associated with fever and abdominal pain On Friday underwent tumor mapping at [place] for eventual Radiation treatment of liver mets This procedure was done through her right groin via Inferior Vena Cava On admission she was found to be neutropenic and anemic with very high LFT's A CT abdomen was done which showed atelectasis right bas/ effusion , as well as extensive liver mets and massive ascites There was no mention of any portal vein thrombosis Patient is febrile to 102 but denies chest pain cough or SOB She is satting well on RA Cultures were sent of blood - however patient denies cough or sputum production Patient has a port in her right chest for chemo which has been in place several months r/o portal vein thrombosis relative neutropenia s/p chemo 1 week ago for Breat Ca/ mets SIRS r/o sepsis right lung atelectasis r/o pneumonia acute liver injury s/p mapping for radiation to liver neutropenia / anemia on [place] therapy for liver mets await cultures recc Hepatology/ GI eval and or tertiary care referral monitor coags cont IV antibiotics pending cultures v
[2018-07-01 17:25] LABS: INR 1.2; PROTHROMBIN TIME 14.1 Seconds (9.8-13.1)
[2018-07-01 21:53] LABS: HEPATITIS B SURFACE AG Negative (NEGATIVE)
[2018-07-01 21:59] LABS: HEPATITIS A IGM NEGATIVE (NEGATIVE); HEPATITIS B CORE AB NEGATIVE (NEGATIVE)
[2018-07-01 22:11] LABS: HEPATITIS C ANTIBODY NEGATIVE (NEGATIVE)
[2018-07-02] MEDS: levoFLOXacin 500 mg in D5W 500 MG/100 ML BAG IVPB SCH (08:26)
[2018-07-02 08:35] LABS: BASO % 0.5 % (0.0-2.0); EOS % 0.4 % (0.0-4.0); HEMOGLOBIN 9.8 g/dL (12.0-16.0); LYMPH # 0.9 K/uL (1.0-4.3); LYMPH % 30.9 % (20.0-40.0); MEAN CELL VOLUME 96.2 fl (81.0-99.0); MEAN CORPUSCULAR HEMOGLOBIN 32.3 pg (27.0-31.0); MEAN CORPUSCULAR HGB CONC 33.6 g/dL (33.0-37.0); MONO # 0.5 K/uL (0.0-0.8); MONO % 17.6 % (0.0-10.0); NEUT # 1.5 K/uL (1.8-7.0); NEUT % 50.6 % (50.0-75.0); NRBC % 5.1 % (0.0-0.0); RBC 3.04 Mil/uL (3.80-5.20); RED CELL DISTRIBUTION WIDTH 18.9 % (11.5-14.5); WHITE BLOOD COUNT 2.9 K/uL (4.8-10.8)
--- NOTE | 2018-07-02 09:07 | US ---
Date of service: 07/01/2018 PROCEDURE: Bilateral lower extremity venous duplex Doppler. HISTORY: r/o dvt hx breast cancer COMPARISON: None available. TECHNIQUE: Bilateral common femoral, superficial femoral, popliteal and posterior tibial veins were evaluated. Flow was assessed with color Doppler, compressibility, assessment of phasic flow and augmentation response. FINDINGS: COMMON FEMORAL VEIN: Right CFV: Limited evaluation due to bandage material. Left CFV: Unremarkable. SUPERFICIAL FEMORAL VEIN: Right SFV: Limited evaluation due to bandage material. Left SFV: Unremarkable. POPLITEAL VEIN: Right Popliteal: Unremarkable. Left Popliteal: Unremarkable. POSTERIOR TIBIAL VEIN: Right PTV: Unremarkable. Left PTV: Unremarkable. OTHER FINDINGS: None. IMPRESSION: No evidence of deep venous thrombosis. Limited evaluation of right common femoral vein and proximal superficial femoral vein.
[2018-07-02 09:08] LABS: ALB/GLOB RATIO 0.9 (1.0-2.1); ALBUMIN 2.6 g/dL (3.5-5.0); ALT/SGPT 537 U/L (9-52); BLOOD UREA NITROGEN 6 mg/dl (7-17); CALCIUM 7.5 mg/dL (8.4-10.2); GFR NON-AFRICAN AMERICAN > 60
--- NOTE | 2018-07-02 09:41 | CP.PCM.PN ---
Subjective - Date & Time of Evaluation Date of Evaluation: 07/02/18 Time of Evaluation: 09:39 - Subjective Subjective: pt doing well. no f/c, n/v/d. no cough/congestion. bw noted-procalcitonin slightly elevated. lft appear to be trending down excessive time spent w/ hsband on phone and w/ pt. urine c/s pending mod bacteria in urine noted Objective - Vital Signs/Intake and Output Vital Signs (last 24 hours): Temp Pulse Resp BP Pulse Ox 98.2 F 88 20 103/66 94 L 07/02/18 08:15 07/02/18 08:15 07/02/18 08:15 07/02/18 08:15 07/02/18 08:15 - Medications Medications: Current Medications Acetaminophen (Tylenol 325mg Tab) 650 mg PO Q4 PRN PRN Reason: Fever >100.4 F Levofloxacin/Dextrose (Levaquin 500mg) 500 mg in 100 mls @ 100 mls/hr IVPB DAILY [facility]; Protocol Last Admin: 07/02/18 08:26 Dose: 100 mls/hr Vancomycin HCl 750 mg/ Sodium (Chloride) 250 mls @ 250 mls/hr IVPB Q12H [facility]; Protocol Last Admin: 07/02/18 03:16 Dose: 250 mls/hr Ibuprofen (Motrin Tab) 600 mg PO Q6 PRN PRN Reason: Fever >100.4 F Last Admin: 07/01/18 12:54 Dose: 600 mg - Labs Labs: 07/02/18 04:00 07/02/18 04:00 PT 14.1 Seconds (9.8-13.1) H 07/01/18 16:48 INR 1.2 07/01/18 16:48 - Constitutional Appears: Well, Non-toxic, No Acute Distress - Head Exam Head Exam: ATRAUMATIC, NORMAL INSPECTION, NORMOCEPHALIC - Eye Exam Eye Exam: EOMI, Normal appearance, PERRL Pupil Exam: NORMAL ACCOMODATION, PERRL - ENT Exam ENT Exam: Mucous Membranes Moist, Normal Exam - Neck Exam Neck Exam: Full ROM, Normal Inspection. absent: Lymphadenopathy - Respiratory Exam Respiratory Exam: Clear to Ausculation Bilateral, NORMAL BREATHING PATTERN - Cardiovascular Exam Cardiovascular Exam: REGULAR RHYTHM, RRR, +S1, +S2. absent: Murmur - GI/Abdominal Exam GI & Abdominal Exam: Soft, Normal Bowel Sounds. absent: Tenderness - Extremities Exam Extremities Exam: Full ROM, Normal Capillary Refill, Normal Inspection. absent: Joint Swelling, Pedal Edema - Back Exam Back Exam: NORMAL INSPECTION - Neurological Exam Neurological Exam: Alert, Awake, CN II-XII Intact, Normal Gait, Oriented x3 - Psychiatric Exam Psychiatric exam: Normal Affect, Normal Mood - Skin Skin Exam: Dry, Intact, Normal Color, Warm Assessment and Plan (1) Breast cancer Assessment & Plan: cont care at [facility] pt has chemoscheduled for tomorrow Status: Acute (2) Neutropenia Assessment & Plan: appears to be improving/stable will [facility] heme/onc Status: Acute (3) Chronic anemia Assessment & Plan: s/p 2 units prbc. now pper 9s heme/onc cont c are otpt w/ [facility] Status: Acute (4) DVT prophylaxis Assessment & Plan: scd and aehose ambulation Status: Acute (5) Pneumonia Assessment & Plan: levaquin added vanco by ID procalcitonin noted bc x 24h negative. Status: Acute
[2018-07-02 09:50] LABS: AST/SGOT 900 U/L (14-36)
[2018-07-02 10:23] LABS: INR 1.2; PROTHROMBIN TIME 13.4 Seconds (9.8-13.1)
[2018-07-02] MEDS ORDERED: Potassium Chloride 20 mEq ER Tab PO ONE (10:35)
[2018-07-02 16:31] VITALS: RESP 18
[2018-07-02 20:10] VITALS: BP 112/76; PULSE 100; TEMP 99.4; O2SAT 96
== END 2018-07-02 19:55 | disposition left against medical advice (07) | DRG 194 ==
LOC: H.ER 14:53 → H.ERHOLD 21:31 → H.TEL 22:49
PROVIDERS: ADMIT Family Medicine; ATTEND Family Medicine
PROC: 30233N1 Transfusion of Nonautologous Red Blood Cells into Peripheral Vein, Percutaneous Approach (ICD-10-PCS; principal; 2018-06-30)
DX: J18.9 Pneumonia, unspecified organism (principal); C78.7 Secondary malignant neoplasm of liver and intrahepatic bile duct; C79.51 Secondary malignant neoplasm of bone; R18.8 Other ascites; J98.11 Atelectasis; D64.81 Anemia due to antineoplastic chemotherapy; D70.1 Agranulocytosis secondary to cancer chemotherapy; D70.8 Other neutropenia; R50.81 Fever presenting with conditions classified elsewhere; K52.9 Noninfective gastroenteritis and colitis, unspecified; T45.1X5A Adverse effect of antineoplastic and immunosuppressive drugs, initial encounter; Z85.3 Personal history of malignant neoplasm of breast; Z92.21 Personal history of antineoplastic chemotherapy; Z92.3 Personal history of irradiation; Z90.13 Acquired absence of bilateral breasts and nipples; Z88.0 Allergy status to penicillin